=== PATIENT | female | born 1980 | race Caucasian/White ===

== ENCOUNTER 2016-07-24 09:35 | Day surgery (SDC) | payer OTHER ==
[~2016-07-24] VITALS: Ht 149.9 cm; Wt 104.5 kg
[~2016-07-24 09:35] MED LIST: ACETAMINOPHEN500 MG PO; BACTRIM,SEPT1 TABLET PO; BENTYL10 MG PO; BENTYL20 MG PO; BIOTENE1000 ML MM; BUSPAR10 MG PO; BUSPIRONE HCL5 MG PO; CALCIUM + D SO1 EACH PO; CALCIUM + VITA1 EACH PO; CALCIUM PO; CITRATE OF MAG296 ML PO; CLARITIN,ALAVAR10 MG PO; CLARITIN10 M3 PO; FLONASE16 G1 BOTH NARES; FLONASE16 GM; GILDESS1 EAC1 PO; GLYCOLAX17 GM PO; JUNEL1 EAC1 PO; LORATADINE10 M2 PO; MAALOX ADVANCE355 ML PO; MEDROXYPRO150 MG/1 M IM; MIDOL CAPLET1 EACH PO; MIRALAX17 GM PO; MIRALAX255 GM PO; MOTRIN600 MG PO; OMEPRAZOLE20 MG PO; ORAL ANALGESIC9 GM MM; PAXIL30 MG PO; PRILOSEC20 MG PO; PROMETHAZINE HC25 M1 PO; Q-TUSSIN DM SY240 ML PO; SERTRALINE HCL100 MG PO; SIMVASTATIN20 MG PO; TYLENOL REGULA325 MG PO; ZOCOR20 MG PO; ZOLOFT20 MG/ML PO; ZOLOFT50 MG PO; [UNRECOGNIZED DRUG - OTHER] PO
[2016-07-24 10:12] LABS: EOSINOPHIL (%) 0.9 % (0-5); EOSINOPHIL COUNT 0.1 K/uL (0-0.3); HEMATOCRIT 43.1 % (36.0-46.0); IMMATURE GRANULOCYTE (%) 0.3 % (0.0-0.7); LYMPHOCYTE COUNT 1.8 K/uL (1.0-2.8); MCH 29.3 PG (29.0-34.0); MCHC 32.7 G/DL (30.0-36.0); MCV 89.6 FL (83-99); MEAN PLAT.VOLUME 9.6 uM^3 (9.5-12.4); MONOCYTE (%) 8.4 % (3-12); MONOCYTE COUNT 0.7 K/uL (0-0.8); NEUTROPHIL (%) 69.3 % (45-76); PLATELET COUNT 302 K/uL (156-360); RBC DIS.WIDTH-CV 13.2 % (11.8-14.6); RBC DIS.WIDTH-SD 43.3 % (39-53); RED BLOOD COUNT 4.81 M/uL (3.80-5.20); WHITE BLOOD COUNT 8.7 K/uL (4.1-10.2)
[2016-07-24 10:20] LABS: CHLORIDE 105 mEq/L (99-109); POTASSIUM 4.5 mEq/L (3.7-5.4); SODIUM 137 mEq/L (136-147)
[2016-07-24 10:22] VITALS: BP 132/82
[2016-07-24 10:22] LABS: GLUCOSE 100 mg/dL (70-99)
[2016-07-24 10:23] LABS: ANION GAP 12 MEQ/L (2-14)
[2016-07-24 10:25] LABS: GFR ESTIMATE (CALCULATED) > 59 mL/min/
[2016-07-24 10:26] LABS: UREA NITROGEN (BUN) 13 mg/dL (9-23)
[2016-07-24 10:34] LABS: QUANTITATIVE HCG < 4.0 MIU/ML
[2016-07-24 12:20] LABS: METH RESISTANT S AUREUS PCR NEGATIVE (NEGATIVE)
[2016-07-24 12:22] LABS: PROBE CHECK PASS; SPECIMEN PROCESSING CONTROL PASS
[2016-07-24 14:45] VITALS: BP 134/79
[2016-07-24 15:41] VITALS: BP 133/76
== END 2016-07-24 15:40 | disposition home or self-care (01) ==
LOC: SDC 09:35
PROVIDERS: Obstetrics & Gynecology
PROC: 0UDB8ZX Extraction of Endometrium, Via Natural or Artificial Opening Endoscopic, Diagnostic (ICD-10-PCS; principal; 2016-07-24)
DX: N93.9 Abnormal uterine and vaginal bleeding, unspecified (principal); N84.0 Polyp of corpus uteri; N84.1 Polyp of cervix uteri; E66.9 Obesity, unspecified; F41.8 Other specified anxiety disorders; K21.9 Gastro-esophageal reflux disease without esophagitis; Z83.3 Family history of diabetes mellitus
CPT/HCPCS: 80048; 84702; 85025; 87641; 88305; J1100; J1170; J1885; J2405; J3010

== ENCOUNTER 2016-11-16 15:37 | Emergency (ER) | payer OTHER ==
[~2016-11-16] VITALS: Ht 152.4 cm; Wt 104.0 kg
[2016-11-16 16:54] LABS: HEMATOCRIT 40.3 % (36.0-46.0); MCH 29.4 PG (29.0-34.0); MCHC 33.3 G/DL (30.0-36.0); MCV 88.4 FL (83-99); MEAN PLAT.VOLUME 9.6 uM^3 (9.5-12.4); PLATELET COUNT 291 K/uL (156-360); RED BLOOD COUNT 4.56 M/uL (3.80-5.20); WHITE BLOOD COUNT 10.3 K/uL (4.1-10.2)
[2016-11-16 17:00] LABS: CHLORIDE 105 mEq/L (99-109); POTASSIUM 4.1 mEq/L (3.7-5.4); SODIUM 137 mEq/L (136-147)
[2016-11-16 17:02] LABS: GLUCOSE 125 mg/dL (70-99)
[2016-11-16 17:03] LABS: ANION GAP 14 MEQ/L (2-14)
[2016-11-16 17:05] LABS: SERUM ETHYL ALCOHOL < 10 mg/dL
[2016-11-16 17:06] LABS: GFR ESTIMATE (CALCULATED) > 59 mL/min/
[2016-11-16 17:07] LABS: UREA NITROGEN (BUN) 11 mg/dL (9-23)
[2016-11-16 17:14] LABS: QUANTITATIVE HCG < 4.0 MIU/ML
[2016-11-16 19:02] VITALS: BP 110/97
[2016-11-16 19:24] LABS: ADD MEDTOX COMMENT Y; AMPHETAMINE NEGATIVE (500 ng/mL); BARBITURATES NEGATIVE (200 ng/mL); BENZODIAZEPINES PRESUMPTIVE POSITIVE (150 ng/mL); COCAINE NEGATIVE (150 ng/mL); INTERNAL CONTROLS VALID? YES; METHADONE NEGATIVE (200 ng/mL); METHAMPHETAMINE NEGATIVE (500 ng/mL); OPIATES (MORPHINE) NEGATIVE (100 ng/mL); OXYCODONE NEGATIVE (100 ng/mL); PHENCYCLIDINE NEGATIVE (25 ng/mL); PROPOXYPHENE NEGATIVE (300 ng/mL); THC CANNABINOIDS NEGATIVE (50 ng/mL); TRICYCLIC ANTIDEPRESSANTS NEGATIVE (300 ng/mL)
[2016-11-16 20:02] LABS: BENZODIAZEPINES, URINE SCREEN POSITIVE (200 ng/mL)
== END 2016-11-16 19:04 | disposition home or self-care (01) ==
LOC: EME 15:37
PROVIDERS: Emergency Medicine
DX: F32.9 Major depressive disorder, single episode, unspecified (principal); K21.9 Gastro-esophageal reflux disease without esophagitis; F41.1 Generalized anxiety disorder; R56.9 Unspecified convulsions; F84.5 Asperger's syndrome; F71 Moderate intellectual disabilities
CPT/HCPCS: 80048; 84702; 84999; 85027; 90839; 99281; 99285; G0480

== ENCOUNTER 2016-11-30 17:07 | Emergency (ER) | payer OTHER ==
[~2016-11-30] VITALS: Ht 152.4 cm; Wt 104.5 kg
[2016-11-30 17:55] LABS: HEMATOCRIT 40.5 % (36.0-46.0); MCH 29.3 PG (29.0-34.0); MCHC 32.6 G/DL (30.0-36.0); MEAN PLAT.VOLUME 9.6 uM^3 (9.5-12.4); PLATELET COUNT 259 K/uL (156-360); RBC DIS.WIDTH-CV 13.2 % (11.8-14.6); WHITE BLOOD COUNT 8.8 K/uL (4.1-10.2)
[2016-11-30 18:07] LABS: CHLORIDE 105 mEq/L (99-109); POTASSIUM 4.7 mEq/L (3.7-5.4); SODIUM 138 mEq/L (136-147)
[2016-11-30 18:09] LABS: GLUCOSE 81 mg/dL (70-99)
[2016-11-30 18:10] LABS: ANION GAP 12 MEQ/L (2-14)
[2016-11-30 18:13] LABS: GFR ESTIMATE (CALCULATED) > 59 mL/min/; UREA NITROGEN (BUN) 10 mg/dL (9-23)
[2016-11-30 18:20] LABS: TROP-I INTERPRETATION NEGATIVE; TROPONIN-I < 0.01 ng/mL (0.0-0.30)
[2016-11-30 19:13] VITALS: BP 132/79
== END 2016-11-30 19:14 | disposition home or self-care (01) ==
LOC: EME 17:07
PROVIDERS: Nurse Practitioner Family
DX: R07.9 Chest pain, unspecified (principal); R45.1 Restlessness and agitation; F84.5 Asperger's syndrome; F41.9 Anxiety disorder, unspecified; K21.9 Gastro-esophageal reflux disease without esophagitis; F79 Unspecified intellectual disabilities
CPT/HCPCS: 71020; 80048; 84484; 85027; 90839; 93005; 99281; 99285

== ENCOUNTER 2017-01-02 12:34 | Emergency (ER) | payer OTHER ==
[~2017-01-02] VITALS: Ht 152.4 cm; Wt 103.5 kg
[2017-01-02 16:55] VITALS: BP 116/80
== END 2017-01-02 17:25 | disposition home or self-care (01) ==
LOC: EME → EDBD 12:34 → EME 17:25
DX: F91.9 Conduct disorder, unspecified (principal); R45.851 Suicidal ideations; R45.850 Homicidal ideations; R44.0 Auditory hallucinations; F79 Unspecified intellectual disabilities
CPT/HCPCS: 90832; 99281; 99285; J1630; J2060

== ENCOUNTER 2017-01-04 09:56 | Emergency (ER) | payer OTHER ==
[~2017-01-04] VITALS: Ht 152.4 cm; Wt 104.4 kg
[2017-01-04 11:16] LABS: EOSINOPHIL (%) 1.1 % (0-5); EOSINOPHIL COUNT 0.1 K/uL (0-0.3); HEMATOCRIT 38.5 % (36.0-46.0); IMMATURE GRANULOCYTE (%) 0.3 % (0.0-0.7); INSTRUMENT ABS NEUTROPHIL CT 5.5 K/uL; LYMPHOCYTE COUNT 1.7 K/uL (1.0-2.8); MCH 29.2 PG (29.0-34.0); MCHC 32.2 G/DL (30.0-36.0); MCV 90.8 FL (83-99); MONOCYTE (%) 8.1 % (3-12); MONOCYTE COUNT 0.6 K/uL (0-0.8); NEUTROPHIL (%) 69.3 % (45-76); NEUTROPHIL COUNT 5.5 K/uL (1.8-6.4); PLATELET COUNT 272 K/uL (156-360); RBC DIS.WIDTH-CV 13.6 % (11.8-14.6); RBC DIS.WIDTH-SD 45.8 % (39-53); RED BLOOD COUNT 4.24 M/uL (3.80-5.20)
[2017-01-04 11:24] LABS: CHLORIDE 109 mEq/L (99-109); POTASSIUM 4.7 mEq/L (3.7-5.4); SODIUM 139 mEq/L (136-147)
[2017-01-04 11:26] LABS: GLUCOSE 123 mg/dL (70-99)
[2017-01-04 11:27] LABS: ANION GAP 9 MEQ/L (2-14)
[2017-01-04 11:28] LABS: TOTAL BILIRUBIN 0.3 mg/dL (0.0-1.0)
[2017-01-04 11:29] LABS: SERUM ETHYL ALCOHOL < 10 mg/dL
[2017-01-04 11:30] LABS: GFR ESTIMATE (CALCULATED) > 59 mL/min/
[2017-01-04 11:31] LABS: ALKALINE PHOSPHATASE 66 IU/L (3-129)
[2017-01-04 11:32] LABS: UREA NITROGEN (BUN) 10 mg/dL (9-23)
[2017-01-04 11:33] LABS: SALICYLATE < 5.0 MG/DL (15-30)
[2017-01-04 11:42] LABS: ADD MIUA? NO; BILIRUBIN NEGATIVE; BLOOD NEGATIVE; COLOR YELLOW ((YELLOW)); GLUCOSE (STRIP) NEGATIVE; KETONES NEGATIVE; LEUKOCYTES NEGATIVE; NITRITE NEGATIVE; PROTEIN (STRIP) 30; SPECIFIC GRAVITY 1.026 (1.000-1.030); UCUL ADDED? NO
[2017-01-04 11:42] LABS: QUANTITATIVE HCG < 4.0 MIU/ML
[2017-01-04 11:55] LABS: ADD MEDTOX COMMENT Y; AMPHETAMINE NEGATIVE (500 ng/mL); BARBITURATES NEGATIVE (200 ng/mL); BENZODIAZEPINES PRESUMPTIVE POSITIVE (150 ng/mL); COCAINE NEGATIVE (150 ng/mL); INTERNAL CONTROLS VALID? YES; METHADONE NEGATIVE (200 ng/mL); METHAMPHETAMINE NEGATIVE (500 ng/mL); OPIATES (MORPHINE) NEGATIVE (100 ng/mL); OXYCODONE NEGATIVE (100 ng/mL); PHENCYCLIDINE NEGATIVE (25 ng/mL); PROPOXYPHENE NEGATIVE (300 ng/mL); THC CANNABINOIDS NEGATIVE (50 ng/mL); TRICYCLIC ANTIDEPRESSANTS NEGATIVE (300 ng/mL)
[2017-01-04 12:24] LABS: BENZODIAZEPINES, URINE SCREEN POSITIVE (200 ng/mL)
[2017-01-04 14:20] VITALS: BP 120/70
== END 2017-01-04 14:25 | disposition home or self-care (01) ==
LOC: EME 09:56
PROVIDERS: Emergency Medicine
DX: F32.9 Major depressive disorder, single episode, unspecified (principal); F41.1 Generalized anxiety disorder; F71 Moderate intellectual disabilities; F84.5 Asperger's syndrome
CPT/HCPCS: 80053; 81003; 84702; 84999; 85025; 90837; 99281; 99285; G0480

== ENCOUNTER 2017-01-09 16:52 | Emergency (ER) | payer OTHER ==
[~2017-01-09] VITALS: Ht 152.4 cm; Wt 102.5 kg
[2017-01-09 17:20] LABS: HEMATOCRIT 39.8 % (36.0-46.0); MCH 29.7 PG (29.0-34.0); MCHC 32.9 G/DL (30.0-36.0); MCV 90.2 FL (83-99); MEAN PLAT.VOLUME 9.5 uM^3 (9.5-12.4); PLATELET COUNT 294 K/uL (156-360); RBC DIS.WIDTH-CV 13.5 % (11.8-14.6); RBC DIS.WIDTH-SD 45.1 % (39-53); RED BLOOD COUNT 4.41 M/uL (3.80-5.20); WHITE BLOOD COUNT 8.3 K/uL (4.1-10.2)
[2017-01-09 17:30] LABS: CHLORIDE 110 mEq/L (99-109); POTASSIUM 4.1 mEq/L (3.7-5.4); SODIUM 139 mEq/L (136-147)
[2017-01-09 17:32] LABS: GLUCOSE 105 mg/dL (70-99)
[2017-01-09 17:33] LABS: ANION GAP 8 MEQ/L (2-14)
[2017-01-09 17:34] LABS: TOTAL BILIRUBIN 0.3 mg/dL (0.0-1.0)
[2017-01-09 17:35] LABS: ALKALINE PHOSPHATASE 65 IU/L (3-129)
[2017-01-09 17:36] LABS: GFR ESTIMATE (CALCULATED) > 59 mL/min/
[2017-01-09 17:37] LABS: UREA NITROGEN (BUN) 10 mg/dL (9-23)
[2017-01-09 17:39] LABS: LIPASE 32 U/L (1.0-51.0)
[2017-01-09 17:45] LABS: QUANTITATIVE HCG < 4.0 MIU/ML
[2017-01-09] MEDS ORDERED: BENTYL10 MG PO (18:31)
[2017-01-09 18:41] VITALS: BP 132/98
== END 2017-01-09 18:41 | disposition home or self-care (01) ==
LOC: EME 16:52
PROVIDERS: Nurse Practitioner Family
DX: I88.0 Nonspecific mesenteric lymphadenitis (principal); R10.9 Unspecified abdominal pain; R19.7 Diarrhea, unspecified; Z90.49 Acquired absence of other specified parts of digestive tract; F84.5 Asperger's syndrome
CPT/HCPCS: 74176; 80053; 83690; 84702; 85027; 99281; 99284

== ENCOUNTER 2017-02-14 18:49 | Emergency (ER) | payer OTHER ==
[~2017-02-14] VITALS: Ht 167.6 cm; Wt 105.0 kg
[2017-02-14 19:35] LABS: HEMATOCRIT 38.6 % (36.0-46.0); MCH 29.9 PG (29.0-34.0); MCHC 33.7 G/DL (30.0-36.0); MCV 88.7 FL (83-99); PLATELET COUNT 283 K/uL (156-360); RBC DIS.WIDTH-CV 13.3 % (11.8-14.6); RBC DIS.WIDTH-SD 43.5 % (39-53); RED BLOOD COUNT 4.35 M/uL (3.80-5.20); WHITE BLOOD COUNT 9.6 K/uL (4.1-10.2)
[2017-02-14 19:46] LABS: ALBUMIN 3.6 g/dL (3.2-4.8); CHLORIDE 106 mEq/L (99-109); POTASSIUM 4.4 mEq/L (3.7-5.4); SODIUM 136 mEq/L (136-147)
[2017-02-14 19:49] LABS: GLUCOSE 115 mg/dL (70-99); TOTAL PROTEIN 6.6 g/dL (6.4-8.3)
[2017-02-14 19:51] LABS: TOTAL BILIRUBIN 0.3 mg/dL (0.0-1.0)
[2017-02-14 19:52] LABS: ALKALINE PHOSPHATASE 60 IU/L (3-129); CREATININE 0.8 mg/dL (0.6-1.3); GFR ESTIMATE (CALCULATED) > 59 mL/min/
[2017-02-14 19:53] LABS: UREA NITROGEN (BUN) 10 mg/dL (9-23)
[2017-02-14 19:54] LABS: AST (GOT) 15 IU/L (2-34)
[2017-02-14 19:55] LABS: ALT (GPT) 19 IU/L (3-49)
[2017-02-14 20:02] LABS: QUANTITATIVE HCG < 4.0 MIU/ML
[2017-02-14 21:25] LABS: APPEARANCE CLOUDY ((CLEAR)); BILIRUBIN NEGATIVE; BLOOD NEGATIVE; COLOR YELLOW ((YELLOW)); GLUCOSE (STRIP) NEGATIVE; KETONES NEGATIVE; LEUKOCYTES TRACE; NITRITE NEGATIVE; PROTEIN (STRIP) NEGATIVE; SPECIFIC GRAVITY 1.021 (1.000-1.030)
[2017-02-14 21:35] LABS: BACTERIA RARE /HPF; EPITHELIAL CELLS 2+ /HPF; MUCUS TRACE /LPF; RED BLOOD CELLS 0-5 /HPF (0-5); UCUL ADDED? NO; WHITE BLOOD CELLS 0-5 /HPF (0-5)
[2017-02-15 00:51] VITALS: BP 111/84
== END 2017-02-15 00:55 | disposition designated cancer center or children's hospital (05) ==
LOC: EME 18:49
PROVIDERS: Emergency Medicine
DX: R10.84 Generalized abdominal pain (principal); K21.9 Gastro-esophageal reflux disease without esophagitis; F84.5 Asperger's syndrome; F79 Unspecified intellectual disabilities; F41.9 Anxiety disorder, unspecified; Z90.49 Acquired absence of other specified parts of digestive tract
CPT/HCPCS: 74022; 74176; 80053; 81003; 84702; 85027; 99281; 99285

== ENCOUNTER 2017-03-20 22:01 | Emergency (ER) | payer OTHER ==
[~2017-03-20] VITALS: Ht 152.4 cm; Wt 109.8 kg
[2017-03-20 22:26] LABS: HEMATOCRIT 37.6 % (36.0-46.0); HEMOGLOBIN 12.4 G/DL (11.9-15.5); MCH 29.4 PG (29.0-34.0); MCV 89.1 FL (83-99); PLATELET COUNT 268 K/uL (156-360); RBC DIS.WIDTH-CV 13.6 % (11.8-14.6); RBC DIS.WIDTH-SD 44.4 % (39-53); RED BLOOD COUNT 4.22 M/uL (3.80-5.20)
[2017-03-20 22:48] LABS: CHLORIDE 107 mEq/L (99-109); POTASSIUM 4.5 mEq/L (3.7-5.4); SODIUM 138 mEq/L (136-147)
[2017-03-20 22:50] LABS: GLUCOSE 149 mg/dL (70-99)
[2017-03-20 22:54] LABS: CREATININE 0.9 mg/dL (0.6-1.3); GFR ESTIMATE (CALCULATED) > 59 mL/min/; UREA NITROGEN (BUN) 12 mg/dL (9-23)
[2017-03-20 22:57] LABS: TROP-I INTERPRETATION NEGATIVE; TROPONIN-I < 0.01 ng/mL (0.0-0.30)
[2017-03-20 23:50] VITALS: BP 139/83
== END 2017-03-20 23:53 | disposition home or self-care (01) ==
LOC: EME 22:01
PROVIDERS: Emergency Medicine
DX: R07.89 Other chest pain (principal); F84.5 Asperger's syndrome; F43.10 Post-traumatic stress disorder, unspecified; K21.9 Gastro-esophageal reflux disease without esophagitis; Z87.440 Personal history of urinary (tract) infections; Z90.49 Acquired absence of other specified parts of digestive tract
CPT/HCPCS: 71046; 80048; 84484; 85027; 87502; 87651 90; 93005; 99281; 99284

== ENCOUNTER 2017-08-21 15:09 | Emergency (ER) | payer OTHER ==
[~2017-08-21] VITALS: Ht 152.4 cm; Wt 102.0 kg
[2017-08-21 15:52] LABS: BASOPHIL (%) 0.2 % (0-1); EOSINOPHIL COUNT 0.1 K/uL (0-0.3); HEMATOCRIT 41.3 % (36.0-46.0); HEMOGLOBIN 13.5 G/DL (11.9-15.5); IMMATURE GRANULOCYTE (%) 0.5 % (0.0-0.7); LYMPHOCYTE (%) 23.1 % (15-42); LYMPHOCYTE COUNT 2.4 K/uL (1.0-2.8); MCH 29.4 PG (29.0-34.0); MCHC 32.7 G/DL (30.0-36.0); MONOCYTE (%) 9.4 % (3-12); NEUTROPHIL (%) 65.8 % (45-76); NEUTROPHIL COUNT 6.8 K/uL (1.8-6.4); PLATELET COUNT 295 K/uL (156-360); RBC DIS.WIDTH-CV 13.7 % (11.8-14.6); RBC DIS.WIDTH-SD 45.2 % (39-53); RED BLOOD COUNT 4.59 M/uL (3.80-5.20); WHITE BLOOD COUNT 10.3 K/uL (4.1-10.2)
[2017-08-21 15:58] LABS: APPEARANCE CLEAR ((CLEAR)); BILIRUBIN NEGATIVE; BLOOD NEGATIVE; COLOR YELLOW ((YELLOW)); GLUCOSE (STRIP) NEGATIVE; KETONES NEGATIVE; LEUKOCYTES NEGATIVE; NITRITE NEGATIVE; PROTEIN (STRIP) 100
[2017-08-21 16:04] LABS: ALBUMIN 4.2 g/dL (3.2-4.8); CHLORIDE 106 mEq/L (99-109); POTASSIUM 4.7 mEq/L (3.7-5.4); SODIUM 139 mEq/L (136-147)
[2017-08-21 16:06] LABS: GLUCOSE 103 mg/dL (70-99); TOTAL PROTEIN 7.2 g/dL (6.4-8.3)
[2017-08-21 16:07] LABS: AMPHETAMINE NEGATIVE (500 ng/mL); BARBITURATES NEGATIVE (200 ng/mL); BENZODIAZEPINES PRESUMPTIVE POSITIVE (150 ng/mL); BUPRENORPHINE NEGATIVE (10 ng/mL); COCAINE NEGATIVE (150 ng/mL); METHADONE NEGATIVE (200 ng/mL); METHAMPHETAMINE NEGATIVE (500 ng/mL); OPIATES (MORPHINE) NEGATIVE (100 ng/mL); OXYCODONE NEGATIVE (100 ng/mL); PHENCYCLIDINE NEGATIVE (25 ng/mL); PROPOXYPHENE NEGATIVE (300 ng/mL); THC CANNABINOIDS NEGATIVE (50 ng/mL); TRICYCLIC ANTIDEPRESSANTS NEGATIVE (300 ng/mL)
[2017-08-21 16:08] LABS: BACTERIA NONE SEEN /HPF; EPITHELIAL CELLS RARE /HPF; HYALINE CASTS 0-5 /LPF; MUCUS NONE SEEN /LPF; RED BLOOD CELLS 0-5 /HPF (0-5); TOTAL BILIRUBIN 0.2 mg/dL (0.0-1.0); UCUL ADDED? NO; WHITE BLOOD CELLS 0-5 /HPF (0-5)
[2017-08-21 16:09] LABS: SERUM ETHYL ALCOHOL < 10 mg/dL
[2017-08-21 16:10] LABS: ALKALINE PHOSPHATASE 60 IU/L (3-129); CREATININE 0.9 mg/dL (0.6-1.3); GFR ESTIMATE (CALCULATED) > 59 mL/min/
[2017-08-21 16:11] LABS: AST (GOT) 29 IU/L (2-34)
[2017-08-21 16:12] LABS: UREA NITROGEN (BUN) 11 mg/dL (9-23)
[2017-08-21 16:13] LABS: SALICYLATE < 5.0 MG/DL (15-30)
[2017-08-21 16:14] LABS: ACETAMINOPHEN (TYLENOL) < 10 mcg/mL (10-30); ALT (GPT) 34 IU/L (3-49); LIPASE 38 U/L (1.0-51.0)
[2017-08-21 16:20] LABS: QUANTITATIVE HCG < 4.0 MIU/ML
[2017-08-21 16:39] LABS: BENZODIAZEPINES, URINE SCREEN POSITIVE (200 ng/mL)
[2017-08-21 19:17] VITALS: BP 110/85
== END 2017-08-21 19:17 | disposition home or self-care (01) ==
LOC: EME 15:09
PROVIDERS: Emergency Medicine
DX: F32.9 Major depressive disorder, single episode, unspecified (principal); T65.891A Toxic effect of other specified substances, accidental (unintentional), initial encounter; R10.9 Unspecified abdominal pain; F71 Moderate intellectual disabilities; F41.1 Generalized anxiety disorder; Z90.49 Acquired absence of other specified parts of digestive tract
CPT/HCPCS: 80053; 81003; 83690; 84702; 84999; 85025; 90839; G0480; J2060

== ENCOUNTER 2017-08-25 14:31 | Emergency (ER) | payer OTHER ==
[~2017-08-25] VITALS: Ht 162.6 cm; Wt 100.8 kg
[2017-08-25 15:27] LABS: COCAINE NEGATIVE (150 ng/mL); METHAMPHETAMINE NEGATIVE (500 ng/mL); PHENCYCLIDINE NEGATIVE (25 ng/mL); THC CANNABINOIDS NEGATIVE (50 ng/mL)
[2017-08-25 15:28] LABS: AMPHETAMINE NEGATIVE (500 ng/mL); BARBITURATES NEGATIVE (200 ng/mL); BENZODIAZEPINES PRESUMPTIVE POSITIVE (150 ng/mL); BUPRENORPHINE NEGATIVE (10 ng/mL); METHADONE NEGATIVE (200 ng/mL); OPIATES (MORPHINE) NEGATIVE (100 ng/mL); OXYCODONE NEGATIVE (100 ng/mL); PROPOXYPHENE NEGATIVE (300 ng/mL); TRICYCLIC ANTIDEPRESSANTS NEGATIVE (300 ng/mL)
[2017-08-25 15:29] LABS: HEMATOCRIT 38.3 % (36.0-46.0); HEMOGLOBIN 12.9 G/DL (11.9-15.5); MCH 30.1 PG (29.0-34.0); MCHC 33.7 G/DL (30.0-36.0); MCV 89.5 FL (83-99); PLATELET COUNT 290 K/uL (156-360); RBC DIS.WIDTH-CV 13.8 % (11.8-14.6); RBC DIS.WIDTH-SD 44.6 % (39-53); RED BLOOD COUNT 4.28 M/uL (3.80-5.20); WHITE BLOOD COUNT 10.5 K/uL (4.1-10.2)
[2017-08-25 15:36] LABS: CHLORIDE 106 mEq/L (99-109); POTASSIUM 4.5 mEq/L (3.7-5.4); SODIUM 140 mEq/L (136-147)
[2017-08-25 15:37] LABS: GLUCOSE 92 mg/dL (70-99)
[2017-08-25 15:41] LABS: CREATININE 0.9 mg/dL (0.6-1.3); GFR ESTIMATE (CALCULATED) > 59 mL/min/; SERUM ETHYL ALCOHOL < 10 mg/dL
[2017-08-25 15:42] LABS: UREA NITROGEN (BUN) 11 mg/dL (9-23)
[2017-08-25 15:51] LABS: QUANTITATIVE HCG < 4.0 MIU/ML
[2017-08-25 16:07] LABS: BENZODIAZEPINES, URINE SCREEN POSITIVE (200 ng/mL)
[2017-08-25 16:52] LABS: ACETAMINOPHEN (TYLENOL) < 10 mcg/mL (10-30); LIPASE 28 U/L (1.0-51.0)
[2017-08-25 18:08] LABS: APPEARANCE CLEAR ((CLEAR)); BILIRUBIN NEGATIVE; BLOOD SMALL; COLOR YELLOW ((YELLOW)); GLUCOSE (STRIP) NEGATIVE; KETONES NEGATIVE; LEUKOCYTES NEGATIVE; NITRITE NEGATIVE; PROTEIN (STRIP) 30
[2017-08-25 18:12] LABS: BACTERIA NONE SEEN /HPF; EPITHELIAL CELLS 1+ /HPF; HYALINE CASTS 0-5 /LPF; MUCUS TRACE /LPF; RED BLOOD CELLS 0-5 /HPF (0-5)
[2017-08-26 00:16] VITALS: BP 120/74
== END 2017-08-26 00:19 | disposition home or self-care (01) ==
LOC: EME 14:31
PROVIDERS: Nurse Practitioner Family
DX: F39 Unspecified mood [affective] disorder (principal); K21.9 Gastro-esophageal reflux disease without esophagitis; F41.9 Anxiety disorder, unspecified; F79 Unspecified intellectual disabilities; F84.5 Asperger's syndrome; F43.10 Post-traumatic stress disorder, unspecified; Z90.49 Acquired absence of other specified parts of digestive tract; Z87.440 Personal history of urinary (tract) infections
CPT/HCPCS: 80048; 81003; 83690; 84702; 84999; 85027; 90839; 99281; 99285; G0480; J1200; J1630; J2060